=== PATIENT | male | born 1945 | race Hispanic/Latino ===

== ENCOUNTER → 2017-06-13 | Outpatient (CLI) | payer OTHER ==
[~2017-06-13] MED LIST: AMLO1CAP12 PO; ASPI-1197 PO; CHOL20004 PO; CLOP75TA14 PO; CYAN-35 PO; FERR325C PO; LEVO50 PO; METF500T6 PO; PANT40TA25 PO; PRAV40TA3 PO
== END | disposition home or self-care (01) ==
LOC: RAH 10:00
PROVIDERS: ATTEND Internal Medicine Gastroenterology
DX: R10.9 Unspecified abdominal pain (principal); R11.0 Nausea; R93.3 Abnormal findings on diagnostic imaging of other parts of digestive tract
CPT/HCPCS: 78264; A9541

== ENCOUNTER → 2018-09-02 | Outpatient (CLI) | payer OTHER ==
[~2018-09-02] MED LIST changes: +METF-444 PO; -METF500T6 PO
== END | disposition home or self-care (01) ==
LOC: RAH 08:48
PROVIDERS: ATTEND Internal Medicine
DX: M51.37 Other intervertebral disc degeneration, lumbosacral region (principal); M48.07 Spinal stenosis, lumbosacral region
CPT/HCPCS: 72100

== ENCOUNTER → 2019-09-03 | Outpatient (CLI) | payer OTHER ==
[~2019-09-03] MED LIST changes: +AMLO-104 PO; -AMLO1CAP12 PO
== END | disposition home or self-care (01) ==
LOC: RAH 15:01
PROVIDERS: ATTEND Neurological Surgery
DX: Z01.818 Encounter for other preprocedural examination (principal); M47.816 Spondylosis without myelopathy or radiculopathy, lumbar region; M48.061 Spinal stenosis, lumbar region without neurogenic claudication; Z48.89 Encounter for other specified surgical aftercare; Z98.1 Arthrodesis status
CPT/HCPCS: 72100

== ENCOUNTER → 2021-09-14 | Outpatient (CLI) | payer OTHER ==
[~2021-09-14] MED LIST changes: -PANT40TA25 PO; +PANT40TA54 PO
== END | disposition home or self-care (01) ==
LOC: RAH 07:45
PROVIDERS: ATTEND Internal Medicine Gastroenterology
DX: K82.4 Cholesterolosis of gallbladder (principal)
CPT/HCPCS: 76700

== ENCOUNTER → 2022-03-06 | Outpatient (CLI) | payer OTHER ==
[~2022-03-06] MED LIST changes: +CLOP-31 PO; -CLOP75TA14 PO
== END | disposition home or self-care (01) ==
LOC: RAH 06:58
PROVIDERS: ATTEND Internal Medicine Gastroenterology
DX: R14.0 Abdominal distension (gaseous) (principal); R11.0 Nausea
CPT/HCPCS: 78264; A9541

== ENCOUNTER → 2023-02-14 | Outpatient (CLI) | payer OTHER ==
[~2023-02-14] MED LIST changes: +AMLO-310 PO; +ASPI-1443 PO; +CLOP75TA32 PO; +ISOS30TA92 PO; +METO25TA6 PO; +MULT-1289 PO; +PROSTATE PO
== END | disposition home or self-care (01) ==
LOC: RAH 10:06
PROVIDERS: ATTEND Internal Medicine
DX: J32.0 Chronic maxillary sinusitis (principal); R42 Dizziness and giddiness; R26.81 Unsteadiness on feet
CPT/HCPCS: 70551

== ENCOUNTER → 2024-04-24 | Outpatient (CLI) | payer OTHER ==
--- NOTE | 2024-04-26 08:00 | HMCSR ---
APPROVED REPORT Laterality: Bilateral Indications i65.21 Doppler Spectral Velocity Analysis PSV / EDVPSV / EDV ECA (R) 91 / cm/sECA (L) 85 / cm/s dICA (R) 73 / 12 cm/sdICA (L) 64 / 18 cm/s [place] (R) 64 / 14 cm/smICA (L) 74 / 18 cm/s pICA (R) 50 / 11 cm/spICA (L) 71 / 17 cm/s dCCA (R) 211 / 32 cm/sdCCA (L) 70 / 13 cm/s mCCA (R) 173 / 32 cm/smCCA (L) 85 / 11 cm/s pCCA (R) 101 / 16 cm/spCCA (L) 85 / 14 cm/s Vert (R) 40 / cm/sVert (L) 85 / cm/s Subl. (R) 137 / cm/sSubl. (L) 239 / cm/s ICA/CCA 0.35ICA/CCA 0.87 Technologist Impression Moderate heterogenous smmoth plaque noted in the right common carotid, causing elevated velocities. Right and left ICA appear patent, without hemodynamic significance. Minimal to mild plaque noted in the left carotids. Bilateral vertebral arteries appear antegrade. Velocites in the left subclavian artery are suggestive of >50% stenosis. Conclusion No evidence of significant carotid artery stenosis Conclusion No evidence of significant carotid artery stenosis
== END | disposition home or self-care (01) ==
LOC: SHCH 13:59
PROVIDERS: ATTEND Internal Medicine Cardiovascular Disease
DX: I65.23 Occlusion and stenosis of bilateral carotid arteries (principal)
CPT/HCPCS: 93880

== ENCOUNTER 2025-03-11 05:32 | Day surgery (SDC) | payer OTHER, MEDICAID ==
[2025-03-09 14:06] LABS: IMMATURE GRANULOCYTE ABSOLUTE 0.06 K/uL (0-1); NUCLEATED RED BLOOD CELLS 0.0 % (0.0-0.19); PLATELET COUNT (AUTO) 379 K/uL (130-400); RED BLOOD CELL COUNT(AUTO) 3.98 MIL/uL (4.50-6.20); RED CELL DISTRIBUTION WIDTH 14.0 % (11.0-15.5); WHITE BLOOD COUNT (AUTO) 11.5 K/uL (4.8-10.8)
[2025-03-09 14:16] LABS: CREATININE 1.3 mg/dL (0.5-1.3); GLOMERULAR FILTR. RATE CALC 57.0 mL/min (>90); GLUCOSE,RANDOM 131.0 mg/dL (70-105); INR 1.06 (0.85-1.15); SODIUM SERUM 133.0 mmol/L (136-145); UREA NITROGEN, BLOOD 24.0 mg/dL (7-18)
[2025-03-09 14:45] VITALS: BP 130/62; PULSE 84; RESP 18; TEMP 97.2
--- NOTE | 2025-03-10 00:36 | HMCIMG ---
EXAM: CR CHEST, 1 VIEW CLINICAL HISTORY: Pre operative COMPARISON:Not provided. TECHNIQUE: Single frontal radiograph of the chest was obtained. FINDINGS: Lines/Devices: None. Lungs: Radiographically clear. No consolidation or ground-glass opacities are observed. There is no pleural effusion. There is no pneumothorax. Mediastinum and cardiovascular structures: The cardiac silhouette is not enlarged. The central airway and mediastinal contours are unremarkable. Bones and soft tissues: Reduced bone density. IMPRESSION: 1. No acute cardiopulmonary process. /[place]
--- NOTE | 2025-03-10 07:04 | EKG ---
[facility] Test Date: 2025-03-09 Test Time: 13:55:20 Pat Name: JUDY ANDRADE Department: [facility] Room: [facility] Gender: M Deckhand: [id number] : 1945 Requested By: JOSE GLEZ Order Number: [id number] Reading MD: Jose Glez Measurements Intervals [place] Rate: 79 P: 34 TN: 182 QRS: -57 QRSD: 83 T: 50 QT: 350 QTc: 403 Interpretive Statements Sinus rhythm Left anterior fascicular block Compared to ECG 07/06/2018 10:53:25 No significant changes Electronically Signed On 03-11-2025 08:48:02 SUPERVISOR MACHINING by Jose Glez Please click the below link to view image of tracing.
--- NOTE | 2025-03-10 08:55 | NUR ---
report reported bmp and wbc to deisy gramajo. also reported pt c/0 pain with urination at times. received orders for ua in am.
[~2025-03-11] VITALS: Ht 162.6 cm; Wt 63.1 kg
[2025-03-11] VITALS (11 sets, daily range): BP systolic 133–154; BP diastolic 51–70; PULSE 58–71; RESP 12–15; TEMP 97.2–97.8
[~2025-03-11 05:32] MED LIST changes: -AMLO-104 PO; -AMLO-310 PO; -ASPI-1197 PO; -ASPI-1443 PO; -CHOL20004 PO; -CLOP-31 PO; -CLOP75TA32 PO; -CYAN-35 PO; -FERR325C PO; -ISOS30TA92 PO; -LEVO50 PO; -METF-444 PO; -METO25TA6 PO; -MULT-1289 PO; -PANT40TA54 PO; +PHARMACY COMMUNICATION MISC SCH; -PRAV40TA3 PO; -PROSTATE PO
[2025-03-11 06:51] LABS: APPEARANCE,URINE CLEAR (CLEAR); GLUCOSE, URINE (UA) NEGATIVE (NEGATIVE); LEUKOCYTE ESTERASE ,URINE NEGATIVE Leu/uL (NEGATIVE); NITRATE,URINE NEGATIVE (NEGATIVE); OCCULT BLOOD,URINE NEGATIVE (NEGATIVE)
[2025-03-11 06:53] LABS: ADD UA MICROSCOPIC YES
[2025-03-11 06:57] LABS: SQUAMOUS EPITHELIAL CELL,UR RARE /HPF (0-2)
[2025-03-11] MEDS ORDERED: LIDOCAINE HCL 400MG/20ML VIAL ONE (07:20)
[2025-03-11] MEDS ORDERED: MIDAZOLAM HCL 1 MG/ML 2ML VIAL ONE (07:21)
[2025-03-11] MEDS ORDERED: IOHEXOL 350 MG/ML 100ML INFUS..BTL IV ONE (07:22)
[2025-03-11] MEDS ORDERED: HEParin-NS 1,000 UNIT/500 ML 1,500 ML IV ONE (07:22)
[2025-03-11] MEDS ORDERED: NITROGLYCERIN 50MG VIAL ONE (07:24)
[2025-03-11] MEDS ORDERED: 0.9%NACL 1000ML 1,000 ML IV SCH (08:30)
[2025-03-11] MEDS ORDERED: DEXTROSE 50%-WATER 50 ML DISP.SYRIN IV PRN (08:30)
[2025-03-11] MEDS ORDERED: NITROGLYCERIN 0.4 MG SL TAB SL PRN (08:30)
[2025-03-11] MEDS ORDERED: GLUCAGON 1MG KIT 1 MG ML IM PRN (08:30)
--- NOTE | 2025-03-11 08:33 | PRN ---
Left Heart Cath-Glez PROCEDURE: 1. Right common femoral arterial sheath placement. 2. Selective coronary angiogram. 3. Left heart catheterization. 4. Left ventriculogram. INDICATIONS: Abnormal stress test Unstable angina DESCRIPTION OF PROCEDURE: The patient was brought to the catheterization suite and prepped and draped in sterile fashion. An IV was started, if not already in place and both groins were exposed for arterial access. 1% lidocaine was used for local anesthesia and then a micropuncture kit was used to gain access and once free-flowing blood was seen, modified Seldinger technique was utilized to place a 6 Croatian 25 cm sheath into the right common femoral artery secondary to tortuous iliac artery. Next, preformed JL4 and JR4 Catheters were then used to selectively engage the picayune coronary vessels and multiple hand contrast injections were performed in different views to define the coronary anatomy. Next, a JR4 catheter was used to cross the aortic valve. Pressure measurements were obtained . Next the JR4 catheter was then used to image the left subclavian artery to assess patency of left internal mammary artery. Next a 6 Croatian angled pigtail was used across aortic valve pressure measurements were obtained and then a left ventriculogram was performed in the 30 SAAVEDRA position. At end of case sheath was sewn into place to be removed in the patient with manual pressure secondary to significant calcification and tortuosity of common femoral artery and iliac artery. No complications occurred. FINDINGS: The left main artery bifurcates into the LAD and left circumflex in his calcified with an area of stenosis in the ostium at 50% which had progressed significantly since 2017 This vessel bifurcates into a significantly calcified LAD and circumflex artery. The mid left anterior descending artery is severely calcified with diffuse stenosis of 85-90%. Diagonal branch 1. Is a large vessel with proximal stenosis of 75% mid stenosis of 85% before this large vessel bifurcates with branches extending out to the lateral apex. These branch vessels are diffusely diseased and small and may not be good targets. The left circumflex artery is a nondominant system giving rise to a small obtuse marginal branch 1. Followed by a larger obtuse marginal branch 2. Which bifurcates distally and is free of disease. In the mid left circumflex has a 75% calcified stenosis present. The right coronary artery has a stent to the ostium which is subtotaled with the distal vessel filling with right to right collaterals into a dominant vessel. The distal vessel is also being filled with [id number] collaterals as well. LVEDP is at 15 mm of mercury There was no evidence of aortic stenosis or mitral regurgitation Estimated ejection fraction is 65% with normal resting wall motion in views obtained. RECOMMENDATIONS: Recommend CT surgery consultation to be done for surgical revascularization. Continue home medications Discharge home later today REED GLEZ MD Mar 11, 2025 08:33
--- NOTE | 2025-03-11 09:57 | NUR ---
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 VITAL SIGNS MONITORED, RIGHT FEMORAL SHEAT REMOVED WITH MANUAL PRESSURE AND D-STAT, X10 MINUTES HEMOSTASIS OBTAINED DRESSED WITH A 4X4 GAUGE AND TEGADERM. PATIENT HAD NO PAIN, VITAL SIGNS WERE STABLE THROUGHOUT. PATIENT RETURNED TO DAY PATIENT ROOM REPORT GIVEN TO LAURA FRAIRE AT 0919.
--- NOTE | 2025-03-11 10:03 | NUR ---
PER CV DR. SARABIA PT TO FOLLOW OUT PT. 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 SARABIA OFFICE.
== END 2025-03-11 15:23 | disposition home or self-care (01) ==
LOC: DAH 05:32
PROVIDERS: ATTEND Internal Medicine Cardiovascular Disease
DX: R94.39 Abnormal result of other cardiovascular function study (principal); I25.118 Atherosclerotic heart disease of native coronary artery with other forms of angina pectoris; I25.84 Coronary atherosclerosis due to calcified coronary lesion; I44.4 Left anterior fascicular block; E78.5 Hyperlipidemia, unspecified; K21.9 Gastro-esophageal reflux disease without esophagitis; I11.9 Hypertensive heart disease without heart failure; I87.1 Compression of vein; I87.2 Venous insufficiency (chronic) (peripheral); E11.51 Type 2 diabetes mellitus with diabetic peripheral angiopathy without gangrene; I65.21 Occlusion and stenosis of right carotid artery; R06.02 Shortness of breath; Z95.5 Presence of coronary angioplasty implant and graft; Z79.01 Long term (current) use of anticoagulants; Z79.899 Other long term (current) drug therapy
CPT/HCPCS: 80048; 85025; 85610; 85730; 36415; 71045; 93005; 93458; 99156; 99157 ×2; 82948; 81001; C1894 ×3; C1769; Q9965; J3010; J3490 ×2; J2250; J1644; A4215; A4222; A4221; A4663; A4216; A4606; A4223 ×3; 96360; 96361; Q9967